=== PATIENT | male | born 1930 | race Caucasian/White ===

== ENCOUNTER → 2018-04-14 18:32 | Outpatient (CLI) | payer SELFPAY ==
[2018-04-14 19:32] LABS: INR 1.48 (0.85-1.17); PROTIME 17.3 SECONDS (11.6-15.0)
== END | disposition home or self-care (01) ==
LOC: D.LABREF 18:32
PROVIDERS: Family Medicine
DX: Z51.81 Encounter for therapeutic drug level monitoring (principal); Z79.01 Long term (current) use of anticoagulants; I50.22 Chronic systolic (congestive) heart failure